=== PATIENT | male | born 1995 ===

== ENCOUNTER 2021-05-10 14:23 | Emergency (ER) | payer OTHER ==
[2021-05-10] MEDS ORDERED: Sodium Chloride 0.9% 1,000 ML IV ONE ×2 (15:33→16:25)
--- NOTE | 2021-05-10 15:36 | EDM.PDOC ---
ED HPI GENERAL MEDICAL PROBLEM - General Chief Complaint: Fever Stated Complaint: "HIGH FEVER, CAN'T KEEP ANYTHING DOWN" Time Seen by Provider: 05/10/21 14:24 Source of Information: Reports: Patient History Limitations: Reports: No Limitations - History of Present Illness INITIAL COMMENTS - FREE TEXT/NARRATIVE: HISTORY AND PHYSICAL: History of present illness: Patient is a 25-year-old male who presents to the emergency room with complaints of cough, fever, vomiting x4 days. He was seen at the walk-in clinic on Wednesday, tested for COVID-19 and influenza. These were negative. He was given a prescription for Zofran, states he vomited once this morning. Feels dehydrated even though he has been "chugging water". Patient also states he has some left ear pain that started today. Patient denies any headache, change in vision, syncope or near syncope. Denies any chest pain, back pain, shortness of breath, abdominal pain, diarrhea, constipation or dysuria. Has not noted any blood in urine or stool. Patient has been eating and drinking appropriately. No recent travel or sick contacts. Review of systems: As per history of present illness and below otherwise all systems reviewed and negative. Past medical history: As per history of present illness and as reviewed below otherwise noncontributory. Surgical history: As per history of present illness and as reviewed below otherwise noncontributory. Social history: See social history for further information Family history: As per history of present illness and as reviewed below otherwise noncontributory. Physical exam: General: Well developed and well nourished 25-year-old male. Alert and orientated x 3. Nontoxic in appearance and in no acute distress. Vital signs are stable and have been reviewed by me. Nursing notes were reviewed. HEENT: Atraumatic, normocephalic, pupils equal and reactive bilaterally, negative for conjunctival pallor or scleral icterus, mucous membranes dry, cracked lips, TMs normal bilaterally, throat clear, neck supple, nontender, trachea midline. No drooling or trismus noted. No meningeal signs. No hot potato voice noted. Lungs: Clear to auscultation bilaterally. No wheezes, rales, or rhonchi. Chest nontender. Normal work of breathing, no accessory muscles used. Heart: S1S2, regular rate and rhythm without overt murmur, gallops, or rubs. No JVD. No peripheral edema Abdomen: Soft, nondistended, nontender. Normoactive bowel sounds. Negative for masses or costovertebral tenderness. Pelvis: Stable nontender. Genitourinary/Rectal: Deferred. Skin: Intact, warm, dry. No lesions or rashes noted. Hematologic: No petechiae or purpra. Mucosa appropriate color and normal nail bed color and refill. Extremities: Atraumatic, moves all extremities per self without difficulty or deficits, negative for cords or calf pain. Neurovascular unremarkable. Neuro: Awake, alert, oriented. Cranial nerves II through XII unremarkable. Cerebellum unremarkable. Motor and sensory unremarkable throughout. Exam nonfocal. Psychiatric: Mood and affect are appropriate. Normal thought process. Answering questions appropriately. Please note that the patient was seen and evaluated during the 2019 SARS-CoV-2 novel coronavirus pandemic period. Community viral transmission is ongoing at time of this encounter and the emergency department is operating under pandemic response procedures. Medical Decision Making: Patient is a 25-year-old male who presents to the emergency room with complaints of fever, cough, nausea and vomiting x4 days. He had been tested for COVID and influenza when his symptoms started, these were negative. He continues to have symptoms with fever. He clinically does appear fairly dehydrated as his oral mucosa is dry and his lips are cracked. We will do basic lab work and retest for COVID and influenza. Patient sodium and chloride are low, will do 2 L of IV fluids. He is positive for COVID-19. Chest x-ray shows a normal cardiac mediastinal silhouette. Left upper lobe airspace consolidation. Right lung appears clear. No effusion or pneumothorax. This could represent pneumonia. Will place him on doxycycline in case this could be bacterial. I am going to recommend outpatient antibody therapy as outpatient. VSS. I have talked with the patient about today's findings, in addition to providing specific details for plan of care. Reassessment at the time of disposition demonstrates that the patient is in no acute distress. The patient is stable for discharge, counseling was provided and we discussed in great detail signs and symptoms that would prompt them to return to the Emergency Department. Medication, follow up and supportive care measures were reviewed and discussed. Voices understanding and is agreeable to plan of care. Denies any further questions or concerns at this time. Diagnostics: COVID/Influenza, CBC, CMP, CXR Therapeutics: IV fluids x 2 Prescription: Phenergan with Codeine Doxycycline Impression: Dehydration COVID-19 Pneumonia Plan: 1. You were evaluated today on an emergent basis. Your labs showed that you are significantly dehydrated. Make sure you are drinking small frequent sips of fluids to prevent dehydration. Your COVID-19 screening is positive. That means you do have the coronavirus and you are considered contagious. Chest x-ray showed a left upper lobe pneumonia, this is likely due to your COVID-19 but we will cover you with antibiotics in case this is bacterial. Your vital signs and oxygen saturation are well enough that you were able to monitor your symptoms at home. Continue to monitor for trouble breathing, new confusion or inability to arouse, bluish lips or face or any of the other symptoms we discussed -if this occurs please return to the emergency room immediately. 2. Please self quarantine until cleared by [facility] Department. Inform any persons that you have been in contact with since you started becoming symptomatic that you have tested positive; they should be made aware and take the appropriate steps as needed. 3. You can take NyQuil during the evening to help get a restful night sleep. May alternate Tylenol and ibuprofen as needed for pain and fever management. 4. The [facility] department will be calling you and following up with you. The [place] COVID 19 Hot[place] phone number , They are open Wednesday - Wednesday 7am - 7pm. Follow up with your primary care provider for re-evaluation as directed. Definitive disposition and diagnosis as appropriate pending reevaluation and review of above. left ear pain Pain Score (Numeric/FACES): 2 - Related Data Allergies Allergy/AdvReac Type Severity Reaction Status Date / Time No Known Allergies Allergy Verified 05/10/21 15:25 Home Meds: Home Meds Acetaminophen [Tylenol] 500 mg PO ASDIRECTED 05/10/21 [History] Codeine/Promethazine [Phenergan with Codeine] 5 - 10 ml PO Q6HR PRN #4 oz [Rx] Ibuprofen [Motrin] 600 mg PO ASDIRECTED 05/10/21 [History] Ondansetron [Zofran ODT] 4 mg PO ASDIRECTED 05/10/21 [History] Phenylephrine/Dm/Acetaminop/Gg [Theraflu Exp-Max Sv Cld-Flu Lq] ml PO ASDIRECTED 05/10/21 [History] Past Medical History - Infectious Disease History Infectious Disease History: Reports: Chicken Pox - Past Surgical History HEENT Surgical History: Reports: Myringotomy w Tube(s), Oral Surgery Social & Family History - Family History Family Medical History: No Pertinent Family History - Recreational Drug Use Recreational Drug Use: No ED ROS GENERAL - Review of Systems Review Of Systems: Comprehensive ROS is negative, except as noted in HPI. ED EXAM, GENERAL - Physical Exam Exam: See Below (See dictation) Course - Vital Signs Last Recorded V/S: Last Vital Signs Temp 100.3 F 05/10/21 15:27 Pulse 111 H 05/10/21 15:27 Resp 20 05/10/21 15:27 BP 130/71 05/10/21 15:27 Pulse Ox 95 05/10/21 15:27 - Orders/Labs/Meds Labs: Laboratory Tests 05/10/21 05/10/21 05/10/21 Range/Units 15:17 15:50 15:50 WBC 4.31 (4.0-11.0) K/uL RBC 4.83 (4.50-5.90) M/uL Hgb 14.7 (13.0-17.0) g/dL Hct 40.3 (38.0-50.0) % MCV 83.4 (80.0-98.0) fL MCH 30.4 (27.0-32.0) pg MCHC 36.5 (31.0-37.0) g/dL RDW Std Deviation 35.4 (28.0-62.0) fl RDW Coeff of Guzman 12 (11.0-15.0) % Plt Count 102 L (150-400) K/uL MPV 10.70 (7.40-12.00) fL Neut % (Auto) 76.0 (48.0-80.0) % Lymph % (Auto) 20.6 (16.0-40.0) % [place] % (Auto) 3.2 (0.0-15.0) % Eos % (Auto) 0.0 (0.0-7.0) % Baso % (Auto) 0.2 (0.0-1.5) % Neut # (Auto) 3.3 (1.4-5.7) K/uL Lymph # (Auto) 0.9 (0.6-2.4) K/uL [place] # (Auto) 0.1 (0.0-0.8) K/uL Eos # (Auto) 0.0 (0.0-0.7) K/uL Baso # (Auto) 0.0 (0.0-0.1) K/uL Nucleated RBC % 0.0 /100WBC Nucleated RBCs # 0 K/uL Sodium 128 L (136-148) mmol/L Potassium 3.5 (3.5-5.1) mmol/L Chloride 90 L (98-107) mmol/L Carbon Dioxide 27.3 (21.0-32.0) mmol/L BUN 12 (7.0-18.0) mg/dL Creatinine 1.2 (0.8-1.3) mg/dL Est Cr Clr Drug Dosing 108.20 mL/min Estimated GFR (MDRD) > 60.0 ml/min Glucose 105 (74-106) mg/dL Calcium 7.9 L (8.5-10.1) mg/dL Total Bilirubin 1.0 (0.2-1.0) mg/dL AST 54 H (15-37) IU/L ALT 23 (14-63) IU/L Alkaline Phosphatase 43 L (46-116) U/L Total Protein 7.1 (6.4-8.2) g/dL Albumin 3.7 (3.4-5.0) g/dL Globulin 3.4 (2.6-4.0) g/dL Albumin/Globulin Ratio 1.1 (0.9-1.6) Influenza Type A RNA NEGATIVE (NEGATIVE) Influenza Type B RNA NEGATIVE (NEGATIVE) SARS-CoV-2 RNA (RENA) POSITIVE H (NEGATIVE) Meds: Medications Discontinued Medications Generic Name Dose Route Start Last Admin Trade Name Freq PRN Reason Stop Dose Admin Sodium Chloride 1,000 mls @ 999 mls/hr 05/10/21 15:33 05/10/21 15:42 Normal Saline IV 05/10/21 16:33 999 mls/hr STAT ONE Administration Sodium Chloride 1,000 mls @ 999 mls/hr 05/10/21 16:25 05/10/21 16:28 Normal Saline IV 05/10/21 17:25 999 mls/hr STAT ONE Administration Departure - Departure Time of Disposition: 17:31 Disposition: Home, Self-Care 01 Clinical Impression: Pneumonia due to COVID-19 virus, Dehydration - Discharge Information Prescriptions: Codeine/Promethazine [Phenergan with Codeine] 5 - 10 ml PO Q6HR PRN #4 oz PRN Reason: Cough Instructions: 10 Things You Can Do to Manage Your COVID-19 Symptoms at Home - [facility] (11/15/2020) Referrals: Claudy Austin MD [Primary Care Provider] - Forms: ED Department Discharge Additional Instructions: The following information is given to patients seen in the emergency department who are being discharged to home. This information is to outline your options for follow-up care. We provide all patients seen in our emergency department with a follow-up referral. The need for follow-up, as well as the timing and circumstances, are variable depending upon the specifics of your emergency department visit. If you don't have a primary care physician on staff, we will provide you with a referral. We always advise you to contact your personal physician following an emergency department visit to inform them of the circumstance of the visit and for follow-up with them and/or the need for any referrals to a consulting specialist. The emergency department will also refer you to a specialist when appropriate. This referral assures that you have the opportunity for follow-up care with a specialist. All of these measure are taken in an effort to provide you with optimal care, which includes your follow-up. Under all circumstances we always encourage you to contact your private physician who remains a resource for coordinating your care. When calling for follow-up care, please make the office aware that this follow-up is from your recent emergency room visit. If for any reason you are refused follow-up, please contact the [facility] Emergency Department at and asked to speak to the emergency department charge nurse. [facility] [address] [place] [id number] [id number] Thank you for choosing the [facility] emergency department in [place] for your medical needs today. It was a pleasure caring for you. Today you were seen in the emergency department for COVID-19 and dehydration. 1. You were evaluated today on an emergent basis. Your labs showed that you are significantly dehydrated. Make sure you are drinking small frequent sips of fluids to prevent dehydration. Your COVID-19 screening is positive. That means you do have the coronavirus and you are considered contagious. Chest x-ray showed a left upper lobe pneumonia, this is likely due to your COVID-19 but we will cover you with antibiotics in case this is bacterial. Your vital signs and oxygen saturation are well enough that you were able to monitor your symptoms at home. Continue to monitor for trouble breathing, new confusion or inability to arouse, bluish lips or face or any of the other symptoms we discussed -if this occurs please return to the emergency room immediately. 2. Please self quarantine until cleared by [facility] Department. Inform any persons that you have been in contact with since you started becoming symptomatic that you have tested positive; they should be made aware and take the appropriate steps as needed. 3. You can take NyQuil during the evening to help get a restful night sleep. May alternate Tylenol and ibuprofen as needed for pain and fever management. 4. The [facility] department will be calling you and following up with you. The [place] COVID 19 Hot[place] phone number , They are open Wednesday - Wednesday 7am - 7pm. Follow up with your primary care provider for re-evaluation as directed. Sepsis Event Note (ED) - Focused Exam Vital Signs: Vital Signs Temp Pulse Resp BP Pulse Ox 05/10/21 15:27 100.3 F 111 H 20 130/71 95
[2021-05-10 16:00] LABS: CORONAVIRUS COVID-19 NAA POSITIVE (NEGATIVE); INFLUENZA A NAA NEGATIVE (NEGATIVE); INFLUENZA B NAA NEGATIVE (NEGATIVE)
[2021-05-10 16:20] LABS: BLOOD UREA NITROGEN,BUN 12 mg/dL (7.0-18.0); CARBON DIOXIDE,CO2 27.3 mmol/L (21.0-32.0); CHLORIDE,CL 90 mmol/L (98-107); GLUCOSE RANDOM 105 mg/dL (74-106); POTASSIUM,K 3.5 mmol/L (3.5-5.1); SODIUM,NA 128 mmol/L (136-148)
--- NOTE | 2021-05-10 16:33 | CR ---
INDICATION: cough TECHNIQUE: Single view chest. FINDINGS: Normal cardiac mediastinal silhouette. Left upper lobe airspace consolidation. Right lung appears clear. No effusion or pneumothorax. This could represent pneumonia. Dictated by Farzana Kirk MD @ 05/10/2021 4:31:09 PM (Electronically Signed)
== END 2021-05-10 17:59 | disposition home or self-care (01) ==
LOC: MW.ED 14:23
DX: U07.1 COVID-19 (principal); J12.82 Pneumonia due to coronavirus disease 2019; E86.0 Dehydration
CPT/HCPCS: 0240U; 36415; 71045; 80053; 85025; 99284; J7030